=== PATIENT | male | born 1960 | race Caucasian/White ===

== ENCOUNTER 2017-05-05 10:20 | Observation (INO) | payer SELFPAY ==
[~2017-05-05] VITALS: Ht 182.9 cm; Wt 90.0 kg
[2017-05-05 10:22] VITALS: BP 188/96; PULSE 96; RESP 22; TEMP 98.7; O2SAT 99
[2017-05-05] MEDS ORDERED: ASPI81CH37 CHEW (10:56)
[2017-05-05] MEDS ORDERED: PROP40TA3 PO (10:56)
[2017-05-05] MEDS ORDERED: NITROGLYCERIN 2% OINT 1 GM PACKET TOP ONE (11:00)
[2017-05-05] MEDS ORDERED: SODIUM CHLORIDE 0.9% FLUSH 10 ML FLUSH IVF PRN (11:00)
[2017-05-05] MEDS ORDERED: ASPIRIN 325 MG TAB PO ONE (11:00)
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
--- NOTE | 2017-05-05 11:26 | RADRPT ---
EXAM DATE/TIME: 05/05/2017 11:17 [facility] COMPARISON: No previous studies available for comparison. INDICATIONS : Chest tightness MEDICAL HISTORY : heart murmur SURGICAL HISTORY : None. ENCOUNTER: Initial ACUITY: 1 day PAIN SCORE: 0/10 LOCATION: Bilateral chest FINDINGS: A single view of the chest demonstrates the lungs to be symmetrically aerated without evidence of mas s, infiltrate or effusion. The cardiomediastinal contours are unremarkable. Osseous structures are intact. CONCLUSION: 1. No acute cardiopulmonary disease. German Hunter MD on May 05, 2017 at 11:25 Board Certified Radiologist. This report was verified electronically.
[2017-05-05 11:37] LABS: APTT (PATIENT) 27.6 SEC (24.3-30.1); PROTHROMBIN TIME - PATIENT 10.8 SEC (9.8-11.6)
[2017-05-05 11:43] LABS: AUTOMATED NEUTROPHIL # 5.2 TH/MM3 (1.8-7.7); BASOPHIL # 0.1 TH/MM3 (0-0.2); BASOPHIL % 0.9 % (0.0-2.0); EOSINOPHIL # 0.1 TH/MM3 (0-0.4); EOSINOPHIL % 1.2 % (0.0-4.0); HEMATOCRIT 44.9 % (39.0-51.0); LYMPH % 23.3 % (9.0-44.0); LYMPHOCYTE # 1.8 TH/MM3 (1.0-4.8); MEAN CELL VOLUME 98.8 FL (80.0-100.0); MEAN CORPUSCULAR HEMOGLOBIN 34.4 PG (27.0-34.0); MEAN CORPUSCULAR HGB CONC 34.8 % (32.0-36.0); MONO % 6.6 % (0.0-8.0); PLATELET COUNT 162 TH/MM3 (150-450); RED BLOOD COUNT 4.54 MIL/MM3 (4.50-5.90); RED CELL DISTRIBUTION WIDTH 12.9 % (11.6-17.2); WHITE BLOOD COUNT 7.7 TH/MM3 (4.0-11.0)
[2017-05-05 11:44] LABS: HEMO FLAGS AUTO DIFF
[2017-05-05 11:51] LABS: ALKALINE PHOSPHATASE 92 U/L (45-117); CREATINE KINASE 118 U/L (39-308); TOTAL BILIRUBIN ADULT 0.7 MG/DL (0.2-1.0)
[2017-05-05 12:00] VITALS: BP 135/74; PULSE 92; RESP 18; O2SAT 99
[2017-05-05 12:00] LABS: ALT (GPT) 118 U/L (12-78); ANION GAP 10 MEQ/L (5-15); AST (GOT) 93 U/L (15-37); BICARBONATE 22.6 MEQ/L (21.0-32.0); BLOOD UREA NITROGEN 8 MG/DL (7-18); CHLORIDE 104 MEQ/L (98-107); GLOMERULAR FILTRATION RATE 48 ML/MIN (>89); POTASSIUM 3.7 MEQ/L (3.5-5.1); SODIUM (NA) 137 MEQ/L (136-145)
[2017-05-05 12:03] LABS: CKMB 2.3 NG/ML (0.5-3.6)
[2017-05-05 12:15] VITALS: O2SAT 99
--- NOTE | 2017-05-05 12:21 | PD ---
Physical Exam Date Seen by Provider: May 05, 2017 Time Seen by Provider: 11:00 Narrative I, Dr. Perez, have reviewed the resident documentation and am in agreement, met with the patient face to face, made the diagnosis, and the medical decision making was done by me. *My assessment and Findings: Patient is seen and evaluated with family practice resident, please see resident note for further details. He apparently was recently incarcerated, but states over the last 8 months has been having problems with chest discomfort and dyspnea on exertion, feels like a pressure, and has been using cocaine since he has been out. He states that his blood pressures been elevated, had been put on a parental wall while in the [facility] but is not on anything now. His blood pressure is fairly elevated today. He was given aspirin and nitroglycerin and on reevaluation at 12 PM, states he is feeling better and to chest pressure is improved. However, considering history and considering he has not previously been evaluated, my plan would be to admit him for chest pain center for further evaluation. EKG did not show any significant changes and cardiac enzymes are negative. Chest x-ray was otherwise unremarkable. EKG shows NSR, no ST elevation or depression, and no arrhythmias. No significant T-wave inversions. Laboratory Tests Test 05/05/17 11:00 05/05/17 11:10 Mean Corpuscular Hemoglobin 34.4 PG (27.0-34.0) Creatinine 1.52 MG/DL (0.60-1.30) Aspartate Amino Transf (AST/SGOT) 93 U/L (15-37) Alanine Aminotransferase (ALT/SGPT) 118 U/L (12-78) Estimat Glomerular Filtration Rate 48 ML/MIN (>89) Troponin I LESS THAN 0.02 NG/ML Urine Cocaine Screen POS (NEG) GENERAL: Well-developed middle age white male patient currently in mild distress. Awake and oriented 3. SKIN: Focused skin assessment warm/dry. HEAD: Atraumatic. Normocephalic. EYES: Pupils equal and round. No scleral icterus. No injection or drainage. ENT: No nasal bleeding or discharge. Mucous membranes pink and moist. NECK: Trachea midline. No JVD. CARDIOVASCULAR: Regular rate and rhythm. No murmur appreciated. RESPIRATORY: No accessory muscle use. Clear to auscultation. Breath sounds equal bilaterally. GASTROINTESTINAL: Abdomen soft, non-tender, nondistended. Hepatic and splenic margins not palpable. MUSCULOSKELETAL: No obvious deformities. No clubbing. No cyanosis. No edema. NEUROLOGICAL: Awake and alert. No obvious cranial nerve deficits. Motor grossly within normal limits. Normal speech. PSYCHIATRIC: Appropriate mood and affect; insight and judgment normal. Data Data Last Documented VS Vital Signs Date Time Temp Pulse Resp B/P (MAP) Pulse Ox O2 Delivery O2 Flow Rate FiO2 05/05/17 10:50 92 20 96 Room Air 05/05/17 10:22 98.7 188/96 (126) Orders Orders Electrocardiogram (05/05/17 10:56) Ckmb (Isoenzyme) Profile (05/05/17 10:56) Complete Blood Count With Diff (05/05/17 10:56) Comprehensive Metabolic Panel (05/05/17 10:56) Magnesium (Mg) (05/05/17 10:56) Prothrombin Time / Inr (Pt) (05/05/17 10:56) Act Partial Throm Time (Ptt) (05/05/17 10:56) Troponin I (05/05/17 10:56) Chest, Single Ap (05/05/17 10:56) Ecg Monitoring (05/05/17 10:56) Bilateral Bp Monitoring (05/05/17 10:56) Iv Access Insert/Monitor (05/05/17 10:56) Oximetry (05/05/17 10:56) Oxygen Administration (05/05/17 10:56) Aspirin (Aspirin) (05/05/17 11:00) Nitroglycerin 2% Oint (Nitroglycerin 2% (05/05/17 11:00) Sodium Chloride 0.9% Flush (Ns Flush) (05/05/17 11:00) Drug Screen, Random Urine (05/05/17 11:09) Lipase (05/05/17 11:42) CKMB (05/05/17 11:00) CKMB% (05/05/17 11:00) Admit Order (Ed Use Only) (05/05/17 12:17) Labs Laboratory Tests Test 05/05/17 11:00 05/05/17 11:10 White Blood Count 7.7 TH/MM3 Red Blood Count 4.54 MIL/MM3 Hemoglobin 15.6 GM/DL Hematocrit 44.9 % Mean Corpuscular Volume 98.8 FL Mean Corpuscular Hemoglobin 34.4 PG Mean Corpuscular Hemoglobin Concent 34.8 % Red Cell Distribution Width 12.9 % Platelet Count 162 TH/MM3 Mean Platelet Volume 8.7 FL Neutrophils (%) (Auto) 68.0 % Lymphocytes (%) (Auto) 23.3 % Monocytes (%) (Auto) 6.6 % Eosinophils (%) (Auto) 1.2 % Basophils (%) (Auto) 0.9 % Neutrophils # (Auto) 5.2 TH/MM3 Lymphocytes # (Auto) 1.8 TH/MM3 Monocytes # (Auto) 0.5 TH/MM3 Eosinophils # (Auto) 0.1 TH/MM3 Basophils # (Auto) 0.1 TH/MM3 CBC Comment AUTO DIFF Prothrombin Time 10.8 SEC Prothromb Time International Ratio 1.0 RATIO Activated Partial Thromboplast Time 27.6 SEC Blood Urea Nitrogen 8 MG/DL Creatinine 1.52 MG/DL Random Glucose 101 MG/DL Total Protein 8.0 GM/DL Albumin 3.7 GM/DL Calcium Level 8.5 MG/DL Magnesium Level 2.0 MG/DL Alkaline Phosphatase 92 U/L Aspartate Amino Transf (AST/SGOT) 93 U/L Alanine Aminotransferase (ALT/SGPT) 118 U/L Total Bilirubin 0.7 MG/DL Sodium Level 137 MEQ/L Potassium Level 3.7 MEQ/L Chloride Level 104 MEQ/L Carbon Dioxide Level 22.6 MEQ/L Anion Gap 10 MEQ/L Estimat Glomerular Filtration Rate 48 ML/MIN Total Creatine Kinase 118 U/L Creatine Kinase MB 2.3 NG/ML Troponin I LESS THAN 0.02 NG/ML Urine Opiates Screen NEG Urine Barbiturates Screen NEG Urine Amphetamines Screen NEG Urine Benzodiazepines Screen NEG Urine Cocaine Screen POS Urine Cannabinoids Screen NEG [facility] Medical Record Reviewed: Yes Supervised Visit with ANNETTA: No Diagnosis Primary Impression: Chest pain Admitting Information Admitting Physician Requests: Admit Sheyla Perez MD May 05, 2017 12:21
[2017-05-05 12:35] LABS: SCAN/DIFF AUTO DIFF CONFIRMED
--- NOTE | 2017-05-05 13:35 | HHI.HP ---
HPI Primary Care Physician No Primary Care Physician Chief Complaint Chest pain History of Present Illness This is a 56-year-old male that presents to ED with a complaint of developing a central chest tightness soon after waking up this morning. States the discomfort is constantly there. He saw nothing to worsen or improve. States that he was short of breath with the discomfort. Denies nausea or diaphoresis. Denies history of CAD. States he had a chest discomfort about 8 months ago while he was in retirement and at that time his blood pressure was 200/100 and he was placed on propanolol. States the discomfort went away. He has been out of retirement for almost 4 weeks and ran out of blood pressure medicine a few days ago. Patient also admits to doing a couple bumps of cocaine about 3 weeks ago. Denies recent illness. Denies fevers or chills. Review of Systems General: Patient denies fevers, chills recent, and recent travel HEENT: Patient denies headache, sore throat, difficulty swallowing. Cardiovascular: Has the chest discomfort as mentioned above. Denies sensation of heart beating rapidly or irregularly. No syncope. Denies diaphoresis Respiratory: He was short of breath. Denies inspirational chest discomfort. Denies coughing wheezing or hemoptysis. GI: Patient denies nausea, vomiting, diarrhea, abdominal pain, bloody stools. Musculoskeletal: Patient denies joint pain or edema. Denies calf pain or edema. Neurovascular: Patient denies numbness, tingling, weakness in extremities. Denies headache. Endocrine: Denies polyuria and polydipsia. Hematologic: Denies easy bruising. Skin: Denies rash or itching. Past Family Social History Allergies: Coded Allergies: No Known Allergies (Unverified , 05/05/17) Past Medical History Hypertension. Tobacco abuse. Cocaine abuse. Denies diabetes, hyperlipidemia, and CAD. Past Surgical History Noncontributory. Reported Medications Reported Meds & Active Scripts Active Reported Aspirin Low Dose (Aspirin) 81 Mg Chew 81 Mg CHEW DAILY Propranolol (Propranolol HCl) 40 Mg Tab 40 Mg PO Q12HR Active Ordered Medications Current Medications Medications (Trade) Dose Ordered Sig/Jacy Route Start Time Stop Time Status Last Admin (NS Flush) 2 ml UNSCH PRN IVF 05/05/17 11:00 Family History Denies family history of CAD. Social History Patient has smoked one half pack of cigarettes a day for the past month. Prior that he really was not smoking for 5 years as he was incarcerated but prior that he smoked a pack cigarettes a day for 30 years. Ms. to cocaine use 3 weeks ago. Ex about 4 beers per evening. Physical Exam Vital Signs Vital Signs Date Time Temp Pulse Resp B/P (MAP) Pulse Ox O2 Delivery O2 Flow Rate FiO2 05/05/17 12:15 99 Room Air 05/05/17 12:15 100 Room Air 05/05/17 12:00 92 18 135/74 (94) 99 Room Air 05/05/17 10:50 92 20 96 Room Air 05/05/17 10:22 98.7 96 22 188/96 (126) 99 Room Air Physical Exam GENERAL: This is a well-nourished, well-developed patient, in no apparent distress. Patient speaks in clear complete sentences. Patient is pleasant. HEENT: Head is atraumatic and normocephalic. Neck is supple without lymphadenopathy and trachea is midline. No JVD or carotid bruits. CARDIOVASCULAR: Regular rate and rhythm without murmurs, gallops, or rubs. RESPIRATORY: Lungs have wheezing and bilateral bases without rales or rhonchi. Chest wall is tender. No use of accessory muscles. GASTROINTESTINAL: Abdomen is nontender, nondistended. Abdomen soft. No obvious pulsatile mass or bruit. No CVA tenderness. Strong femoral pulses bilaterally. Normal bowel sounds in all quadrants. MUSCULOSKELETAL: Patient is moving upper and lower extremities freely. No calf tenderness or edema, no Homans sign. Strong pulses in upper and lower extremities. NEUROLOGICAL: Patient is alert and oriented. Cranial nerves 2-12 are grossly intact. No focal deficits and speech is clear. SKIN: No rash and turgor is normal. Laboratory Laboratory Tests Test 05/05/17 11:00 05/05/17 11:10 White Blood Count 7.7 Red Blood Count 4.54 Hemoglobin 15.6 Hematocrit 44.9 Mean Corpuscular Volume 98.8 Mean Corpuscular Hemoglobin 34.4 Mean Corpuscular Hemoglobin Concent 34.8 Red Cell Distribution Width 12.9 Platelet Count 162 Mean Platelet Volume 8.7 Neutrophils (%) (Auto) 68.0 Lymphocytes (%) (Auto) 23.3 Monocytes (%) (Auto) 6.6 Eosinophils (%) (Auto) 1.2 Basophils (%) (Auto) 0.9 Neutrophils # (Auto) 5.2 Lymphocytes # (Auto) 1.8 Monocytes # (Auto) 0.5 Eosinophils # (Auto) 0.1 Basophils # (Auto) 0.1 CBC Comment AUTO DIFF Differential Comment AUTO DIFF CONFIRMED Prothrombin Time 10.8 Prothromb Time International Ratio 1.0 Activated Partial Thromboplast Time 27.6 Blood Urea Nitrogen 8 Creatinine 1.52 Random Glucose 101 Total Protein 8.0 Albumin 3.7 Calcium Level 8.5 Magnesium Level 2.0 Alkaline Phosphatase 92 Aspartate Amino Transf (AST/SGOT) 93 Alanine Aminotransferase (ALT/SGPT) 118 Total Bilirubin 0.7 Sodium Level 137 Potassium Level 3.7 Chloride Level 104 Carbon Dioxide Level 22.6 Anion Gap 10 Estimat Glomerular Filtration Rate 48 Total Creatine Kinase 118 Creatine Kinase MB 2.3 Troponin I LESS THAN 0.02 Urine Opiates Screen NEG Urine Barbiturates Screen NEG Urine Amphetamines Screen NEG Urine Benzodiazepines Screen NEG Urine Cocaine Screen POS Urine Cannabinoids Screen NEG Result Diagram: 05/05/17 1100 05/05/17 1100 Imaging Last 48 hours Impressions Chest X-Ray 05/05/17 1056 Signed Impressions: Service Date/Time: Friday, May 05, 2017 11:17 - CONCLUSION: 1. No acute cardiopulmonary disease. German Hunter MD Course Initial EKG is sinus rhythm without significant ST segment depressions or elevations. Caprini VTE Risk Assessment Caprini VTE Risk Assessment: No/Low Risk (score <= 1) Caprini Risk Assessment Model Point Value = 1 Point Value = 2 Point Value = 3 Point Value = 5 Age 41-60 Minor surgery BMI > 25 kg/m2 Swollen legs Varicose veins or History of unexplained or recurrent spontaneous Oral contraceptives or hormone replacement Sepsis (< 1 month) Serious lung disease, including pneumonia (< 1 month) Abnormal pulmonary function Acute myocardial infarction Congestive heart failure (< 1 month) History of inflammatory bowel disease Medical patient at bed rest Age 61-74 Arthroscopic surgery Major open surgery (> 45 min) Laparoscopic surgery (> 45 min) Malignancy Confined to bed (> 72 hours) Immobilizing plaster cast Central venous access Age >= 75 History of VTE Family history of VTE Factor V Leiden Prothrombin 25180G Lupus anticoagulant Anticardiolipin antibodies Elevated serum homocysteine Heparin-induced thrombocytopenia Other congenital or acquired thrombophilia Stroke (< 1 month) Elective arthroplasty Hip, pelvis, or leg fracture Acute spinal cord injury (< 1 month) Prophylaxis Regimen Total Risk Factor Score Risk Level Prophylaxis Regimen 0-1 Low Early ambulation 2 Moderate Order ONE of the following: *Sequential Compression Device (SCD) *Heparin 5000 units SQ BID 3-4 Higher Order ONE of the following medications: *Heparin 5000 units SQ TID *Enoxaparin/Lovenox 40 mg SQ daily (WT < 150 kg, CrCl > 30 mL/min) *Enoxaparin/Lovenox 30 mg SQ daily (WT < 150 kg, CrCl > 10-29 mL/min) *Enoxaparin/Lovenox 30 mg SQ BID (WT < 150 kg, CrCl > 30 mL/min) AND/OR *Sequential Compression Device (SCD) 5 or more Highest Order ONE of the following medications: *Heparin 5000 units SQ TID (Preferred with Epidurals) *Enoxaparin/Lovenox 40 mg SQ daily (WT < 150 kg, CrCl > 30 mL/min) *Enoxaparin/Lovenox 30 mg SQ daily (WT < 150 kg, CrCl > 10-29 mL/min) *Enoxaparin/Lovenox 30 mg SQ BID (WT < 150 kg, CrCl > 30 mL/min) AND *Sequential Compression Device (SCD) Assessment and Plan Assessment and Plan * Chest pain: Patient will continue to have serial cardiac enzymes and EKGs for ruling out purposes. He will be seen by Dr. Kellogg cardiology in the chest pain center and will likely undergo stress testing. He would be discharged home if stress test is nonischemic. He will need to follow-up with local PCP. * Hypertension: Patient likely not to be on beta sara with history of cocaine abuse. Will discuss further therapy. * Cocaine abuse: Patient has been counseled for some never using cocaine again. It was discussed with the patient that it could kill him. * Tobacco abuse: Patient has been counseled on the importance of smoking cessation. Patient is stable at this time. He is agreeable to this plan. Phong Tamez May 05, 2017 13:35
[2017-05-05] MEDS ORDERED: ACETAMINOPHEN/HYDROcodone 325 MG/7.5 MG TAB PO PRN (14:00)
[2017-05-05] MEDS ORDERED: ONDANSETRON HCL 4 MG/2 ML VIAL IV PRN (14:00)
[2017-05-05] MEDS ORDERED: cloNIDine HCL 0.1 MG TAB PO PRN (14:00)
[2017-05-05] MEDS ORDERED: PANTOPRAZOLE SOD 40 MG DELAYED RELEASE TAB PO SCH (14:00)
[2017-05-05] MEDS ORDERED: ACETAMINOPHEN 500 MG CPLT PO PRN (14:00)
[2017-05-05] MEDS ORDERED: RESP: ALBUTEROL 2.5 MG/IPRATROPIUM 0.5 MG NEB (SCH) INH ONE (14:00)
[2017-05-05] MEDS ORDERED: RESP: ALBUTEROL 2.5 MG/IPRATROPIUM 0.5 MG NEB (PRN) INH (14:00)
[2017-05-05] MEDS ORDERED: SODIUM CHLORIDE 0.9% FLUSH 10 ML FLUSH IV FLUSH PRN (14:00)
[2017-05-05 14:15] VITALS: O2SAT 95
[2017-05-05 14:42] VITALS: BP_SYST 145; BP_SYST 152; BP_DIAS 65; BP_DIAS 76; PULSE 88; RESP 18; O2SAT 98
[2017-05-05 15:34] LABS: CREATINE KINASE 94 U/L (39-308)
[2017-05-05 15:45] VITALS: BP 131/75; PULSE 75; RESP 16; TEMP 97.7; O2SAT 96
--- NOTE | 2017-05-05 16:16 | EKG ---
Date Performed: 05/05/2017 Time Performed: 10:57:10 PTAGE: 56 years EKG: Sinus rhythm POSSIBLE LEFT ATRIAL ENLARGEMENT SEPTAL MYOCARDIAL INFARCTION ABNORMAL ECG NO PREVIOUS TRACING DOCTOR: Deborah Kellogg Interpretating Date/Time 05/05/2017 16:14:42
--- NOTE | 2017-05-05 16:25 | TR ---
Date Performed: 05/05/2017 Time Performed: 16:03:50 DOCTOR: Deborah Kellogg DRUG LIST: CLINICAL HISTORY: CHEST PAIN REASON FOR TEST: Chest pain REASON FOR ENDING: OBSERVATION: CONCLUSION: Corky protocol completed, test stopped secondary to reaching target heart rate and l eg fatigue. No reproducible chest discomfort. No ST segment change noted. Normal BP respose. Recovery unremarkable.Heart rate return to baseline. Maximum WO=188 % Max HR Achieved=87.0% Maximum HZ=358/84 Total Exercise Time=4:59 No ischemia COMMENTS:
[2017-05-05] MEDS ORDERED: AMLO5TAB2 PO (16:27)
--- NOTE | 2017-05-05 16:28 | HHI.DCPOC ---
Discharge Care Plan Diagnosis: (1) Hypertension (2) Tobacco abuse (3) Cocaine abuse (4) Chest pain Goals to Promote Your Health * To prevent worsening of your condition and complications * To maintain your health at the optimal level Directions to Meet Your Goals Take your medications as prescribed Follow your dietary instruction Follow activity as directed Keep your appointments as scheduled Take your immunizations and boosters as scheduled If your symptoms worsen call your PCP, if no PCP go to Urgent Care Center or Emergency Room Smoking is Dangerous to Your Health. Avoid second hand smoke Call the 24-hour hour crisis hotline for domestic abuse at Phong Tamez May 05, 2017 16:27
[2017-05-05] MEDS ORDERED: SODIUM CHLORIDE 0.9% FLUSH 10 ML FLUSH IV FLUSH SCH (21:00)
[2017-05-06] MEDS ORDERED: ASPIRIN 325 MG TAB PO SCH (09:00)
--- NOTE | 2017-05-06 17:20 | EKG ---
Date Performed: 05/05/2017 Time Performed: 14:32:18 PTAGE: 56 years EKG: Sinus rhythm POSSIBLE LEFT ATRIAL ENLARGEMENT ABNORMAL ECG PREVIOUS TRACING : 05/05/2017 10.57 Since previous tracing, no significant change noted DOCTOR: Wilmar Maxwell Interpretating Date/Time 05/06/2017 17:19:33
== END 2017-05-05 17:27 | disposition home or self-care (01) ==
LOC: NEPC 10:20 → NEDA 12:18 → NEPFCDU 14:48
PROVIDERS: ADMIT Internal Medicine Interventional Cardiology; ATTEND Internal Medicine Interventional Cardiology
DX: R07.89 Other chest pain (principal); I10 Essential (primary) hypertension; F14.10 Cocaine abuse, uncomplicated; R06.02 Shortness of breath; R11.0 Nausea; R94.31 Abnormal electrocardiogram [ECG] [EKG]; B19.20 Unspecified viral hepatitis C without hepatic coma; F17.210 Nicotine dependence, cigarettes, uncomplicated; Z79.82 Long term (current) use of aspirin
CPT/HCPCS: 71010; 80053; 80307; 82550; 82552; 83690; 83735; 84484; 85025; 85610; 85730; 93005; 93017; 94664; 99285; G0378

== ENCOUNTER 2017-07-08 11:32 | Emergency (ER) | payer SELFPAY ==
[~2017-07-08 11:32] MED LIST: AMLO5TAB2 PO; ASPI81CH6 CHEW
[2017-07-08 11:34] VITALS: BP 172/81; PULSE 93; RESP 16; TEMP 98.4; O2SAT 99
[2017-07-08] MEDS ORDERED: ASPIRIN 81 MG CHEW TAB PO ONE (12:15)
[2017-07-08 13:10] LABS: AUTOMATED NEUTROPHIL # 2.5 TH/MM3 (1.8-7.7); BASOPHIL % 0.7 % (0.0-2.0); EOSINOPHIL # 0.1 TH/MM3 (0-0.4); EOSINOPHIL % 1.6 % (0.0-4.0); HEMATOCRIT 45.7 % (39.0-51.0); HEMO FLAGS DIFF FINAL; LYMPH % 27.2 % (9.0-44.0); LYMPHOCYTE # 1.1 TH/MM3 (1.0-4.8); MEAN CELL VOLUME 99.9 FL (80.0-100.0); MEAN CORPUSCULAR HEMOGLOBIN 33.9 PG (27.0-34.0); MEAN CORPUSCULAR HGB CONC 33.9 % (32.0-36.0); NEUT % 64.5 % (16.0-70.0); PLATELET COUNT 121 TH/MM3 (150-450); RED BLOOD COUNT 4.57 MIL/MM3 (4.50-5.90); RED CELL DISTRIBUTION WIDTH 12.3 % (11.6-17.2); WHITE BLOOD COUNT 3.9 TH/MM3 (4.0-11.0)
[2017-07-08 13:11] VITALS: BP 159/96; PULSE 79; RESP 18; O2SAT 97
[2017-07-08 13:18] LABS: APTT (PATIENT) 33.2 SEC (24.3-30.1); PROTHROMBIN TIME - PATIENT 10.2 SEC (9.8-11.6)
--- NOTE | 2017-07-08 13:41 | RADRPT ---
EXAM DATE/TIME: 07/08/2017 12:49 [facility] COMPARISON: No previous studies available for comparison. INDICATIONS : Chest pain. Patient complains of tightness in chest and in left shoulder blade. Patient is having dif ficulty breathing. MEDICAL HISTORY : Hypertension. Heart murmur. SURGICAL HISTORY : None. ENCOUNTER: Initial ACUITY: 1 day PAIN SCORE: 5/10 LOCATION: Bilateral chest FINDINGS: Mild central interstitial prominence is noted. Lungs are otherwise well-expanded and clear. There no consolidating infiltrates, mass densities or effusions. Heart and mediastinal structures are stable. CONCLUSION: Mild interstitial prominence No evidence of consolidating infiltrate, mass densities or effusions. Omar Riggs MD on July 08, 2017 at 13:39 Board Certified Radiologist. This report was verified electronically.
[2017-07-08 13:50] LABS: ANION GAP 7 MEQ/L (5-15); BICARBONATE 23.3 MEQ/L (21.0-32.0); BLOOD UREA NITROGEN 9 MG/DL (7-18); CHLORIDE 109 MEQ/L (98-107); GLOMERULAR FILTRATION RATE 144 ML/MIN (>89); POTASSIUM 4.2 MEQ/L (3.5-5.1); SODIUM (NA) 139 MEQ/L (136-145)
[2017-07-08 13:54] LABS: CREATINE KINASE 133 U/L (39-308)
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
[2017-07-08 14:22] LABS: CKMB 2.7 NG/ML (0.5-3.6)
[2017-07-08] MEDS ORDERED: AMLO5TAB2 PO (16:23)
[2017-07-08 16:33] VITALS: BP 147/74; PULSE 76; RESP 16; O2SAT 100
--- NOTE | 2017-07-09 16:42 | EKG ---
Date Performed: 07/08/2017 Time Performed: 12:15:34 PTAGE: 56 years EKG: Sinus rhythm NORMAL ECG Since PREVIOUS TRACING , no significant change noted PREVIOUS TRACIN05/05/2017 14.32 DOCTOR: Wallace Vitale Interpretating Date/Time 07/09/2017 16:42:01
== END 2017-07-08 16:34 | disposition home or self-care (01) ==
LOC: NEPE 11:32
DX: R07.9 Chest pain, unspecified (principal); R06.02 Shortness of breath; I10 Essential (primary) hypertension; F17.200 Nicotine dependence, unspecified, uncomplicated; Z76.0 Encounter for issue of repeat prescription; Z91.14 Patient's other noncompliance with medication regimen; Z79.899 Other long term (current) drug therapy
CPT/HCPCS: 71020; 80048; 82550; 82552; 83690; 83735; 84484; 85025; 85610; 85730; 93005

== ENCOUNTER 2017-12-17 19:09 | Emergency (ER) | payer SELFPAY ==
[~2017-12-17 19:09] MED LIST changes: +CEPH-459 PO; +PERC5TAB12 PO
== END 2017-12-17 20:48 | disposition left against medical advice (07) ==
LOC: NED 19:09
DX: M79.604 Pain in right leg (principal)
CPT/HCPCS: 99281